=== PATIENT | female | born 1955 | race Caucasian/White ===

== ENCOUNTER 2020-10-14 22:39 | Inpatient (IN) ==
[2020-10-14 23:08] LABS: Basophils # 0.1 K/mcL (0.0-0.2); Basophils % 0.4 %; Eosinophils # 0.4 K/mcL (0.0-0.6); Hematocrit 27.5 % (35.3-44.9); Hemoglobin 8.7 g/dL (11.5-15.4); Immature Granulocytes % 1.1 % (0-4); Lymphocytes # 1.2 K/mcL (0.6-4.6); Lymphocytes % 6.2 %; Mean Corpuscular HGB Conc 31.6 g/dL (31.6-35.5); Mean Corpuscular Hemoglobin 31.5 pg (28.0-33.3); Mean Corpuscular Volume 99.6 fL (83.0-100.0); Mean Platelet Volume 11.3 fL (9.4-12.4); Monocytes # 1.5 K/mcL (0.0-1.3); Monocytes % 7.7 %; Neutrophils # 16.1 K/mcL (1.6-8.9); Platelet Count 165 K/mcL (140-400); Red Blood Count 2.76 M/mcL (3.82-4.97); Red Cell Distribution Width 13.7 % (11.5-14.5); Segmented Neutrophils % 82.6 %; White Blood Count 19.4 K/mcL (4.3-11.1)
[2020-10-14 23:33] LABS: BUN/Creatinine Ratio 9 (6-26); Blood Urea Nitrogen 57 mg/dL (8-23); Carbon Dioxide 17 mEq/L (23-29); Chloride 102 mEq/L (98-107); Glucose 256 mg/dL (70-105); Magnesium 2.1 mg/dL (1.6-2.6); Osmolality,Calculated 297 (280-300); Potassium 5.3 mEq/L (3.5-5.1); Sodium 131 mEq/L (136-145); eGFR For African Americans 8 (> 60); eGFR For Non-African Americans 7 (> 60)
[2020-10-14 23:34] LABS: Troponin I < 0.03 ng/mL (< 0.04)
[2020-10-15 00:46] LABS: INR 1.7; Prothrombin Time 19.1 Seconds (9.4-12.1)
[2020-10-15] MEDS ORDERED: Naloxone 0.4 MG/ML INJ IVP PRN (01:17)
[2020-10-15 02:42] LABS: Basophils # 0.1 K/mcL (0.0-0.2); Basophils % 0.4 %; Eosinophils # 0.3 K/mcL (0.0-0.6); Eosinophils % 1.6 %; Hematocrit 26.4 % (35.3-44.9); Hemoglobin 8.3 g/dL (11.5-15.4); Immature Granulocytes % 0.7 % (0-4); Lymphocytes # 1.5 K/mcL (0.6-4.6); Lymphocytes % 9.2 %; Mean Corpuscular HGB Conc 31.4 g/dL (31.6-35.5); Mean Corpuscular Hemoglobin 32.2 pg (28.0-33.3); Mean Corpuscular Volume 102.3 fL (83.0-100.0); Mean Platelet Volume 11.5 fL (9.4-12.4); Monocytes # 1.2 K/mcL (0.0-1.3); Monocytes % 7.3 %; Neutrophils # 12.9 K/mcL (1.6-8.9); Platelet Count 150 K/mcL (140-400); Red Blood Count 2.58 M/mcL (3.82-4.97); Red Cell Distribution Width 13.6 % (11.5-14.5); Segmented Neutrophils % 80.8 %
[2020-10-15 02:46] LABS: INR 1.7; Prothrombin Time 19.4 Seconds (9.4-12.1)
[2020-10-15 03:01] LABS: Albumin 2.6 g/dL (3.5-5.7); Albumin/Globulin Ratio 0.6 (1.1-2.2); Bilirubin,Indirect 0.4 mg/dL (0.0-1.0); Bilirubin,Total 0.4 mg/dL (0.3-1.0); Globulin 4.5 g/dL (2.4-3.5); Total Protein 7.1 g/dL (6.4-8.9)
[2020-10-15] MEDS: Ipratropium 1 PUFF INHALER IH SCH ×3 (03:43→11:01)
[2020-10-15 03:45] LABS: Digoxin 0.7 ng/mL (0.8-2.0); Potassium 5.1 mEq/L (3.5-5.1)
[2020-10-15] MEDS: Budesonide/Formoterol 80/4.5 1 PUFF INH IH SCH (08:08)
[2020-10-15] MEDS ORDERED: NON-FORMULARY MEDICATION 1 EACH EACH (Ipratropium/Albuterol Sulfate 4 GM) IH SCH (09:00)
[2020-10-15] MEDS ORDERED: *HR* Heparin 5,000 UNIT/ML VIAL ONE (09:19)
[2020-10-15] MEDS: carvediloL 6.25 MG TABLET PO SCH ×2 (10:05→18:03)
[2020-10-15] MEDS: BuPROPion XL (24 HR) 150 MG TABLET PO SCH (10:05)
[2020-10-15] MEDS ORDERED: 0.9 % Sodium Chloride 250 ML IVC PRN (10:16)
[2020-10-15] MEDS ORDERED: *HR* Heparin 10,000 UNIT/10 ML VIAL IV PRN (10:16)
[2020-10-15] MEDS ORDERED: 0.9 % Sodium Chloride 1,000 ML PRIME SCH (10:30)
[2020-10-15 10:51] LABS: Hepatitis B Surface Antibody < 3.10 mIU/mL
[2020-10-15 11:01] LABS: Hepatitis B Surface Antigen Nonreactive (Nonreactive)
[2020-10-15] MEDS ORDERED: Dextrose Gel 15 GM/37.5 ML TUBE PO PRN ×2 (15:14)
[2020-10-15] MEDS ORDERED: D5% in Water 1,000 ML IVC PRN (15:14)
[2020-10-15] MEDS ORDERED: *HR* Dextrose 50 % in Water (Vial) 50 ML VIAL IVP PRN (15:14)
[2020-10-15 15:30] LABS: Complement C3 130 mg/dL (87-200)
[2020-10-15 16:10] LABS: ABG Base Excess -3 mEq/L (-2 to 3); ABG HCO3 25 mEq/L (21-27); ABG Oxygen Saturation 93 % (95-98); ABG PCO2 58 mmHg (35-45); ABG PH 7.25 pH Units (7.32-7.45); ABG PO2 78 mmHg (85-104); ABG TCO2 27 mEq/L (20-26)
[2020-10-15] MEDS: Ipratropium/Albuterol Neb 3 ML IH SCH ×3 (17:08→23:44)
[2020-10-15] MEDS: Insulin LISPRO 300 UNITS/3 ML VIAL SUBQ SCH (17:41)
[2020-10-15] MEDS ORDERED: Warfarin perPT PO PRN (18:00)
[2020-10-15] MEDS ORDERED: *HR* Warfarin 5 MG TABLET PO ONE (18:00)
[2020-10-15 18:57] LABS: ABG Base Excess -2 mEq/L (-2 to 3); ABG HCO3 24 mEq/L (21-27); ABG Oxygen Saturation 94 % (95-98); ABG PCO2 45 mmHg (35-45); ABG PH 7.33 pH Units (7.32-7.45); ABG PO2 78 mmHg (85-104); ABG TCO2 25 mEq/L (20-26); Blood Gas Modality BiLevel
[2020-10-15 19:03] LABS: Protein/Creatinine Ratio,Urine 1.76 mg/mg (0.00-0.20); Sodium, Urine 33.9 mEq/L
[2020-10-15 19:04] LABS: Bacteria,Urine Few per hpf (None-Few); Bilirubin,Urine Negative (Negative); Blood,Urine Small (Negative); Clarity,Urine Clear (Clear); Color,Urine Colorless (Yellow); Glucose,Urine (UA) 300 mg/dL (Normal); Ketones,Urine Negative (Negative); Leukocyte Esterase,Urine Large (Negative); Mucus,Urine Few per lpf (None-Few); Nitrite,Urine Negative (Negative); PH,Urine 6.5 pH Units (5.0-8.0); Protein,Urine 50 mg/dL (Neg-Trace); Specific Gravity,Urine 1.009 (1.010-1.025); Squamous Epithelial Cell,Urine Few per hpf (None-Few); Urobilinogen,Urine Normal (Normal); WBC,Urine 30-50 per hpf (0-3)
[2020-10-15] MEDS: Mirtazapine 15 MG TABLET PO SCH (20:43)
[2020-10-15] MEDS: Melatonin 3 MG TABLET PO SCH (20:43)
[2020-10-15] MEDS: *HR* OxyCODONE/APAP 10/325 TABLET PO PRN (20:46)
[2020-10-15] MEDS ORDERED: Perflutren Lipid Microsphere 1.3 ML in 0.9 % Sodium Chloride 8.7 ML IVP PRN (21:34)
[2020-10-16] MEDS: Ipratropium/Albuterol Neb 3 ML IH SCH ×6 (03:49→23:21)
[2020-10-16 06:26] LABS: Basophils # 0.1 K/mcL (0.0-0.2); Basophils % 0.5 %; Eosinophils # 0.4 K/mcL (0.0-0.6); Eosinophils % 3.4 %; Hematocrit 26.2 % (35.3-44.9); Immature Granulocytes % 0.6 % (0-4); Lymphocytes # 1.6 K/mcL (0.6-4.6); Lymphocytes % 13.6 %; Mean Corpuscular HGB Conc 30.5 g/dL (31.6-35.5); Mean Corpuscular Hemoglobin 30.9 pg (28.0-33.3); Mean Corpuscular Volume 101.2 fL (83.0-100.0); Mean Platelet Volume 11.1 fL (9.4-12.4); Monocytes # 1.4 K/mcL (0.0-1.3); Monocytes % 11.3 %; Neutrophils # 8.4 K/mcL (1.6-8.9); Platelet Count 165 K/mcL (140-400); Red Blood Count 2.59 M/mcL (3.82-4.97); Red Cell Distribution Width 13.5 % (11.5-14.5); Segmented Neutrophils % 70.6 %; White Blood Count 11.9 K/mcL (4.3-11.1)
[2020-10-16 06:35] LABS: INR 1.8; Prothrombin Time 20.2 Seconds (9.4-12.1)
[2020-10-16 06:39] LABS: Calcium 8.4 mg/dL (8.6-10.3); Potassium 4.8 mEq/L (3.5-5.1)
[2020-10-16] MEDS ORDERED: 0.9 % Sodium Chloride 250 ML IVC PRN (07:46)
[2020-10-16] MEDS ORDERED: *HR* Heparin 10,000 UNIT/10 ML VIAL IV PRN (07:46)
[2020-10-16] MEDS ORDERED: 0.9 % Sodium Chloride 1,000 ML PRIME SCH (08:00)
[2020-10-16] MEDS: Furosemide 40 MG/4 ML VIAL IVP SCH ×2 (08:15→16:26)
[2020-10-16] MEDS: Insulin LISPRO 300 UNITS/3 ML VIAL SUBQ SCH ×3 (08:15→16:27)
[2020-10-16] MEDS: BuPROPion XL (24 HR) 150 MG TABLET PO SCH (08:15)
[2020-10-16] MEDS ORDERED: Aspirin 325 MG TABLET PO STA (08:33)
[2020-10-16] MEDS ORDERED: cefTRIAXone 1,000 MG in 0.9 % Sodium Chloride Mini Bag 100 ML IVPB SCH (09:00)
[2020-10-16 09:15] LABS: Basophils # 0.1 K/mcL (0.0-0.2); Basophils % 0.5 %; Eosinophils # 0.5 K/mcL (0.0-0.6); Eosinophils % 3.8 %; Hematocrit 27.2 % (35.3-44.9); Hemoglobin 8.4 g/dL (11.5-15.4); Immature Granulocytes % 0.7 % (0-4); Lymphocytes # 1.3 K/mcL (0.6-4.6); Lymphocytes % 10.6 %; Mean Corpuscular HGB Conc 30.9 g/dL (31.6-35.5); Mean Corpuscular Hemoglobin 31.5 pg (28.0-33.3); Mean Corpuscular Volume 101.9 fL (83.0-100.0); Mean Platelet Volume 11.1 fL (9.4-12.4); Monocytes # 1.2 K/mcL (0.0-1.3); Monocytes % 9.7 %; Neutrophils # 9.3 K/mcL (1.6-8.9); Platelet Count 184 K/mcL (140-400); Red Blood Count 2.67 M/mcL (3.82-4.97); Red Cell Distribution Width 13.7 % (11.5-14.5); Segmented Neutrophils % 74.7 %; White Blood Count 12.5 K/mcL (4.3-11.1)
[2020-10-16] MEDS ORDERED: Isovue-370 500 ML BOTTLE IVP ONE ×2 (09:18→09:44)
[2020-10-16 09:24] LABS: INR 1.8; Prothrombin Time 20.5 Seconds (9.4-12.1)
[2020-10-16 09:40] LABS: BUN/Creatinine Ratio 9 (6-26); Blood Urea Nitrogen 47 mg/dL (8-23); Calcium 8.5 mg/dL (8.6-10.3); Carbon Dioxide 23 mEq/L (23-29); Chloride 102 mEq/L (98-107); Glucose 230 mg/dL (70-105); Osmolality,Calculated 300 (280-300); Potassium 4.8 mEq/L (3.5-5.1); Sodium 135 mEq/L (136-145); Troponin I < 0.03 ng/mL (< 0.04); eGFR For African Americans 9 (> 60); eGFR For Non-African Americans 8 (> 60)
[2020-10-16] MEDS: carvediloL 6.25 MG TABLET PO SCH ×2 (10:52→16:26)
[2020-10-16] MEDS: Budesonide/Formoterol 80/4.5 1 PUFF INH IH SCH (11:27)
[2020-10-16] MEDS ORDERED: levoFLOXacin 750 MG/150 ML 750 MG/150 ML BAG IVPB ONE (12:00)
[2020-10-16] MEDS: *HR* Heparin 5,000 UNIT/ML VIAL SQ SCH ×2 (16:26→20:16)
[2020-10-16] MEDS: Melatonin 3 MG TABLET PO SCH (20:15)
[2020-10-16] MEDS: Mirtazapine 15 MG TABLET PO SCH (20:15)
[2020-10-16] MEDS: *HR* OxyCODONE/APAP 10/325 TABLET PO PRN (22:00)
[2020-10-17] MEDS: Ipratropium/Albuterol Neb 3 ML IH SCH ×4 (03:54→15:40)
[2020-10-17] MEDS: *HR* Heparin 5,000 UNIT/ML VIAL SQ SCH (05:09)
[2020-10-17 05:21] LABS: INR 1.9; Prothrombin Time 21.5 Seconds (9.4-12.1)
[2020-10-17 05:27] LABS: Basophils # 0.1 K/mcL (0.0-0.2); Basophils % 0.8 %; Eosinophils # 0.5 K/mcL (0.0-0.6); Eosinophils % 5.4 %; Hematocrit 25.4 % (35.3-44.9); Hemoglobin 7.9 g/dL (11.5-15.4); Immature Granulocytes % 0.8 % (0-4); Lymphocytes # 1.7 K/mcL (0.6-4.6); Lymphocytes % 18.5 %; Mean Corpuscular HGB Conc 31.1 g/dL (31.6-35.5); Mean Corpuscular Hemoglobin 31.6 pg (28.0-33.3); Mean Corpuscular Volume 101.6 fL (83.0-100.0); Mean Platelet Volume 11.1 fL (9.4-12.4); Monocytes # 1.1 K/mcL (0.0-1.3); Monocytes % 11.9 %; Neutrophils # 5.9 K/mcL (1.6-8.9); Platelet Count 187 K/mcL (140-400); Red Cell Distribution Width 13.7 % (11.5-14.5); Segmented Neutrophils % 62.6 %; White Blood Count 9.3 K/mcL (4.3-11.1)
[2020-10-17 05:41] LABS: Calcium 8.3 mg/dL (8.6-10.3); Potassium 3.7 mEq/L (3.5-5.1)
[2020-10-17] MEDS ORDERED: *HR* Heparin 10,000 UNIT/10 ML VIAL IV PRN (07:21)
[2020-10-17] MEDS ORDERED: 0.9 % Sodium Chloride 250 ML IVC PRN (07:21)
[2020-10-17] MEDS: Budesonide/Formoterol 80/4.5 1 PUFF INH IH SCH (07:53)
[2020-10-17] MEDS ORDERED: Heparin 1,000 UNITS/500 mL 500 ML ONE (08:37)
[2020-10-17] MEDS ORDERED: *HR* FentaNYL (PF) 100 MCG/2 ML VIAL IVP ONE ×2 (08:43→09:19)
[2020-10-17] MEDS ORDERED: Clindamycin 600 MG/50 ML 600 MG/50 ML IV.SOLN IVPB ONE (08:43)
[2020-10-17] MEDS ORDERED: *HR* Midazolam HCl 2 MG/2 ML VIAL IVP ONE (08:43)
[2020-10-17] MEDS ORDERED: *HR* Heparin 5,000 UNIT/ML VIAL ONE (08:54)
[2020-10-17] MEDS ORDERED: 0.9 % Sodium Chloride 500 ML ONE (08:54)
[2020-10-17] MEDS ORDERED: Cholecalciferol (D-3) 1,000 UNIT (25MCG) TABLET PO SCH (09:00)
[2020-10-17] MEDS ORDERED: Aspirin 81 MG TAB.CHEW PO SCH (09:00)
[2020-10-17] MEDS ORDERED: Isosorbide MONOnitrate (24 HR) 30 MG TAB.ER.24H PO SCH (09:00)
[2020-10-17] MEDS ORDERED: Cyanocobalamin (B-12) 1,000 MCG TABLET PO SCH (09:00)
[2020-10-17] MEDS ORDERED: *HR* FentaNYL (PF) 100 MCG/2 ML VIAL ONE (09:19)
[2020-10-17 16:03] VITALS: BP 129/66
[2020-10-17 18:50] LABS: ANA IgG by ELISA DETECTED (None Detected)
[2020-10-18 10:31] LABS: Serine Protease-3 Antibody 7 AU/mL (0-19)
[2020-10-18] MEDS ORDERED: levoFLOXacin 500 MG/100 ML 500 MG/100 ML BAG IVPB SCH (12:00)
[2020-10-19 00:29] LABS: ANA HEp-2 IgG IFA DETECTED (<1:80); Anti Nuclear Ab Pattern SPECKLED
== END 2020-10-17 17:00 | disposition home or self-care (01) | DRG 469 ==
LOC: 2ANU 22:39 → EMEROOARM 22:39 → SUATTDRO 10-15 00:43 → 2ANU 10-15 01:35 → SUATTDRO 10-16 16:12
PROVIDERS: ADMIT Internal Medicine; ATTEND Family Medicine
PROC: IRPERMA (2020-10-17 12:00)

== ENCOUNTER 2020-10-26 10:14 | Observation (INO) ==
[2020-10-26 11:28] LABS: Basophils # 0.1 K/mcL (0.0-0.2); Basophils % 0.7 %; Eosinophils # 0.7 K/mcL (0.0-0.6); Eosinophils % 5.7 %; Hematocrit 23.1 % (35.3-44.9); Immature Granulocytes % 0.6 % (0-4); Lymphocytes # 1.9 K/mcL (0.6-4.6); Lymphocytes % 16.4 %; Mean Corpuscular HGB Conc 30.3 g/dL (31.6-35.5); Mean Corpuscular Hemoglobin 30.7 pg (28.0-33.3); Mean Corpuscular Volume 101.3 fL (83.0-100.0); Mean Platelet Volume 10.2 fL (9.4-12.4); Monocytes # 1.1 K/mcL (0.0-1.3); Monocytes % 9.7 %; Neutrophils # 7.7 K/mcL (1.6-8.9); Platelet Count 257 K/mcL (140-400); Red Blood Count 2.28 M/mcL (3.82-4.97); Red Cell Distribution Width 13.7 % (11.5-14.5); Segmented Neutrophils % 66.9 %; White Blood Count 11.5 K/mcL (4.3-11.1)
[2020-10-26 11:37] LABS: Calcium 8.2 mg/dL (8.6-10.3); Potassium 4.4 mEq/L (3.5-5.1); Troponin I 0.03 ng/mL (< 0.04)
[2020-10-26 11:45] LABS: INR 1.8
[2020-10-26 11:48] LABS: Activated Partial Thrombo Time 30.3 Seconds (26.0-36.0)
[2020-10-26 12:33] LABS: Bilirubin,Urine Negative (Negative); Blood,Urine Trace (Negative); Clarity,Urine Clear (Clear); Color,Urine Light-Yellow (Yellow); Glucose,Urine (UA) 200 mg/dL (Normal); Ketones,Urine Negative (Negative); Leukocyte Esterase,Urine Small (Negative); Nitrite,Urine Negative (Negative); Protein,Urine 50 mg/dL (Neg-Trace); RBC,Urine 0-3 per hpf (0-3); Specific Gravity,Urine 1.009 (1.010-1.025); Squamous Epithelial Cell,Urine Few per hpf (None-Few); Urobilinogen,Urine Normal (Normal)
[2020-10-26] MEDS ORDERED: Furosemide 40 MG/4 ML VIAL IVP ONE (13:05)
[2020-10-26] MEDS ORDERED: Furosemide 80 MG in 0.9 % Sodium Chloride 50 ML IVPB ONE (13:28)
[2020-10-26] MEDS ORDERED: Naloxone 0.4 MG/ML INJ IVP PRN (13:41)
[2020-10-26] MEDS ORDERED: *HR* Dextrose 50 % in Water (Vial) 50 ML VIAL IVP PRN (13:43)
[2020-10-26] MEDS ORDERED: D5% in Water 1,000 ML IVC PRN (13:43)
[2020-10-26] MEDS ORDERED: Dextrose Gel 15 GM/37.5 ML TUBE PO PRN ×2 (13:43)
[2020-10-26] MEDS ORDERED: levoFLOXacin 750 MG/150 ML 750 MG/150 ML BAG IVPB SCH (15:00)
[2020-10-26] MEDS ORDERED: Ipratropium/Albuterol Neb 3 ML IH PRN (15:10)
[2020-10-26] MEDS: Insulin LISPRO 300 UNITS/3 ML VIAL SUBQ SCH (16:51)
[2020-10-26] MEDS: carvediloL 25 MG TABLET PO SCH (16:51)
[2020-10-26] MEDS: Insulin DETEMIR 100 UNIT/ML X5UNITS SUBQ SCH (20:14)
[2020-10-26] MEDS: Pregabalin 50 MG CAPSULE PO SCH (20:14)
[2020-10-26] MEDS: Melatonin 3 MG TABLET PO SCH (20:15)
[2020-10-26] MEDS: *HR* OxyCODONE/APAP 10/325 TABLET PO SCH (20:15)
[2020-10-26] MEDS: Furosemide 40 MG/4 ML VIAL IVP SCH (20:16)
[2020-10-26] MEDS: hydrALAZINE 10 MG TABLET PO SCH (20:17)
[2020-10-27 04:34] LABS: Basophils # 0.1 K/mcL (0.0-0.2); Basophils % 0.6 %; Eosinophils # 0.6 K/mcL (0.0-0.6); Eosinophils % 5.9 %; Hematocrit 23.6 % (35.3-44.9); Hemoglobin 7.2 g/dL (11.5-15.4); Immature Granulocytes % 0.4 % (0-4); Lymphocytes # 1.8 K/mcL (0.6-4.6); Lymphocytes % 19.7 %; Mean Corpuscular HGB Conc 30.5 g/dL (31.6-35.5); Mean Corpuscular Hemoglobin 31.2 pg (28.0-33.3); Mean Corpuscular Volume 102.2 fL (83.0-100.0); Mean Platelet Volume 10.3 fL (9.4-12.4); Monocytes # 0.9 K/mcL (0.0-1.3); Monocytes % 9.8 %; Neutrophils # 5.9 K/mcL (1.6-8.9); Platelet Count 241 K/mcL (140-400); Red Blood Count 2.31 M/mcL (3.82-4.97); Red Cell Distribution Width 13.9 % (11.5-14.5); Segmented Neutrophils % 63.6 %; White Blood Count 9.3 K/mcL (4.3-11.1)
[2020-10-27 04:52] LABS: Calcium 8.1 mg/dL (8.6-10.3); Magnesium 1.7 mg/dL (1.6-2.6); Phosphorous 8.2 mg/dL (2.7-4.5); Potassium 4.6 mEq/L (3.5-5.1)
[2020-10-27] MEDS: Insulin LISPRO 300 UNITS/3 ML VIAL SUBQ SCH ×3 (08:03→17:03)
[2020-10-27] MEDS: hydrALAZINE 10 MG TABLET PO SCH ×2 (08:49→20:08)
[2020-10-27] MEDS: Cholecalciferol (D-3) 1,000 UNIT (25MCG) TABLET PO SCH (08:49)
[2020-10-27] MEDS: carvediloL 25 MG TABLET PO SCH ×2 (08:50→17:02)
[2020-10-27] MEDS: Isosorbide MONOnitrate (24 HR) 30 MG TAB.ER.24H PO SCH (08:51)
[2020-10-27] MEDS: *HR* OxyCODONE/APAP 10/325 TABLET PO SCH ×2 (08:51→20:08)
[2020-10-27] MEDS: Pregabalin 50 MG CAPSULE PO SCH ×2 (08:51→20:09)
[2020-10-27] MEDS: Aspirin Enteric Coated 81 MG Tablet PO SCH (08:52)
[2020-10-27] MEDS: Furosemide 40 MG/4 ML VIAL IVP SCH ×2 (08:53→20:09)
[2020-10-27] MEDS: BuPROPion XL (24 HR) 150 MG TABLET PO SCH (08:56)
[2020-10-27] MEDS: Insulin DETEMIR 100 UNIT/ML X5UNITS SUBQ SCH (20:09)
[2020-10-27] MEDS: Melatonin 3 MG TABLET PO SCH (21:26)
[2020-10-28 05:21] LABS: Hematocrit 21.7 % (35.3-44.9); Hemoglobin 6.6 g/dL (11.5-15.4)
[2020-10-28 05:32] LABS: Prothrombin Time 22.4 Seconds (9.4-12.1)
[2020-10-28 05:43] LABS: Calcium 7.9 mg/dL (8.6-10.3); Magnesium 1.7 mg/dL (1.6-2.6); Phosphorous 8.2 mg/dL (2.7-4.5); Potassium 4.4 mEq/L (3.5-5.1)
[2020-10-28] MEDS ORDERED: 0.9 % Sodium Chloride 2,000 ML ONE (06:39)
[2020-10-28] MEDS ORDERED: *HR* Heparin 10,000 UNIT/10 ML VIAL IV PRN (07:20)
[2020-10-28] MEDS ORDERED: 0.9 % Sodium Chloride 250 ML IVC PRN (07:20)
[2020-10-28] MEDS ORDERED: 0.9 % Sodium Chloride 1,000 ML PRIME SCH (07:30)
[2020-10-28] MEDS: BuPROPion XL (24 HR) 150 MG TABLET PO SCH (08:35)
[2020-10-28] MEDS: Cholecalciferol (D-3) 1,000 UNIT (25MCG) TABLET PO SCH (08:35)
[2020-10-28] MEDS: Insulin LISPRO 300 UNITS/3 ML VIAL SUBQ SCH ×2 (08:35→12:06)
[2020-10-28] MEDS: carvediloL 25 MG TABLET PO SCH (08:36)
[2020-10-28] MEDS: hydrALAZINE 10 MG TABLET PO SCH (08:36)
[2020-10-28] MEDS: Pregabalin 50 MG CAPSULE PO SCH (08:36)
[2020-10-28] MEDS: Aspirin Enteric Coated 81 MG Tablet PO SCH (08:36)
[2020-10-28] MEDS: Furosemide 40 MG/4 ML VIAL IVP SCH (08:36)
[2020-10-28] MEDS: Isosorbide MONOnitrate (24 HR) 30 MG TAB.ER.24H PO SCH (08:36)
[2020-10-28] MEDS: *HR* OxyCODONE/APAP 10/325 TABLET PO SCH (08:48)
[2020-10-28] MEDS ORDERED: Clotrimazole 1% CRM 15 GM TUBE TP SCH (09:00)
[2020-10-28] MEDS ORDERED: Heparin 1,000 UNITS/500 mL 500 ML ONE (10:05)
[2020-10-28] MEDS ORDERED: *HR* FentaNYL (PF) 100 MCG/2 ML VIAL ONE (10:59)
[2020-10-28] MEDS ORDERED: *HR* FentaNYL (PF) 100 MCG/2 ML VIAL IVP ONE (11:00)
[2020-10-28] MEDS ORDERED: *HR* Heparin 5,000 UNIT/ML VIAL ONE (11:04)
[2020-10-28] MEDS ORDERED: levoFLOXacin 500 MG/100 ML 500 MG/100 ML BAG IVPB SCH (16:00)
[2020-10-28 16:18] VITALS: BP 144/78
[2020-10-28 16:49] LABS: Hematocrit 29.1 % (35.3-44.9)
[2020-10-28] MEDS ORDERED: Calcium Acetate 667 MG CAPSULE PO SCH (17:00)
[2020-10-29] MEDS ORDERED: Furosemide 40 MG TABLET PO SCH (08:00)
[2020-10-29] MEDS ORDERED: Sacubitril/Valsartan 24/26 MG 1 TABLET PO SCH (09:00)
== END 2020-10-28 17:15 | disposition home health service (06) ==
LOC: 2ANU 10:14 → EMEROOARM 10:14 → SUATTDRO 13:37 → 2ANU 14:45
PROVIDERS: ADMIT Internal Medicine; ATTEND Internal Medicine
PROC: IRPERMA (2020-10-28 12:00)

== ENCOUNTER 2020-11-07 20:59 | Inpatient (IN) ==
[2020-11-07] MEDS ORDERED: Tdap (Boostrix) Vaccine 0.5 ML SYRINGE IM ONE (21:45)
[2020-11-07 22:58] LABS: Bacteria,Urine Few per hpf (None-Few); Bilirubin,Urine Negative (Negative); Blood,Urine Negative (Negative); Clarity,Urine Clear (Clear); Color,Urine Light-Yellow (Yellow); Glucose,Urine (UA) 100 mg/dL (Normal); Ketones,Urine Negative (Negative); Leukocyte Esterase,Urine Trace (Negative); Mucus,Urine Few per lpf (None-Few); Nitrite,Urine Negative (Negative); PH,Urine 7.5 pH Units (5.0-8.0); Protein,Urine 70 mg/dL (Neg-Trace); RBC,Urine 0-3 per hpf (0-3); Specific Gravity,Urine 1.009 (1.010-1.025); Squamous Epithelial Cell,Urine Few per hpf (None-Few); Urobilinogen,Urine Normal (Normal); WBC,Urine 15-30 per hpf (0-3)
[2020-11-07 23:06] LABS: Basophils # 0.1 K/mcL (0.0-0.2); Basophils % 0.4 %; Eosinophils # 0.4 K/mcL (0.0-0.6); Eosinophils % 2.7 %; Hematocrit 25.1 % (35.3-44.9); Hemoglobin 7.6 g/dL (11.5-15.4); Immature Granulocytes % 0.8 % (0-4); Lymphocytes # 1.3 K/mcL (0.6-4.6); Mean Corpuscular HGB Conc 30.3 g/dL (31.6-35.5); Mean Corpuscular Hemoglobin 30.5 pg (28.0-33.3); Mean Corpuscular Volume 100.8 fL (83.0-100.0); Mean Platelet Volume 9.7 fL (9.4-12.4); Monocytes # 1.3 K/mcL (0.0-1.3); Monocytes % 8.2 %; Neutrophils # 12.4 K/mcL (1.6-8.9); Platelet Count 215 K/mcL (140-400); Red Blood Count 2.49 M/mcL (3.82-4.97); Red Cell Distribution Width 14.5 % (11.5-14.5); Segmented Neutrophils % 79.9 %; White Blood Count 15.6 K/mcL (4.3-11.1)
[2020-11-07 23:28] LABS: BUN/Creatinine Ratio 6 (6-26); Blood Urea Nitrogen 47 mg/dL (8-23); Carbon Dioxide 22 mEq/L (23-29); Chloride 96 mEq/L (98-107); Glucose 187 mg/dL (70-105); Osmolality,Calculated 287 (280-300); Potassium 6.4 mEq/L (3.5-5.1); Sodium 130 mEq/L (136-145); eGFR For African Americans 7 (> 60); eGFR For Non-African Americans 6 (> 60)
[2020-11-07 23:29] LABS: Troponin I < 0.03 ng/mL (< 0.04)
[2020-11-07] MEDS ORDERED: Insulin Human Regular 5 UNIT in 0.9 % Sodium Chloride 10 ML IV ONE (23:42)
[2020-11-07] MEDS ORDERED: Ipratropium/Albuterol Neb 3 ML IH ONE (23:44)
[2020-11-08] MEDS ORDERED: Calcium Gluconate 1,000 MG/10 ML VIAL IVPB STA (00:19)
[2020-11-08] MEDS ORDERED: Calcium Gluconate 1gm/50mL 1 GM/50 ML BAG IVPB ONE (00:30)
[2020-11-08] MEDS ORDERED: Naloxone 0.4 MG/ML INJ IVP PRN (01:29)
[2020-11-08] MEDS ORDERED: Ondansetron 4 MG/2 ML VIAL IVP PRN (01:29)
[2020-11-08] MEDS ORDERED: Acetaminophen 325 MG TABLET PO PRN (01:29)
[2020-11-08] MEDS ORDERED: *HR* Dextrose 50 % in Water (Vial) 50 ML VIAL IVP ONE (01:37)
[2020-11-08] MEDS ORDERED: Insulin Human Regular 10 UNIT in 0.9 % Sodium Chloride 10 ML IV ONE (01:37)
[2020-11-08] MEDS ORDERED: SODIUM ZIRCONIUM CYCLOSILICATE 5 GM POWD.PACK PO ONE (01:38)
[2020-11-08] MEDS ORDERED: Dextrose Gel 15 GM/37.5 ML TUBE PO PRN ×2 (05:47)
[2020-11-08] MEDS ORDERED: D5% in Water 1,000 ML IVC PRN (05:47)
[2020-11-08] MEDS ORDERED: *HR* Dextrose 50 % in Water (Vial) 50 ML VIAL IVP PRN (05:47)
[2020-11-08] MEDS ORDERED: Insulin LISPRO 300 UNITS/3 ML VIAL SUBQ SCH (06:00)
[2020-11-08 06:58] LABS: Basophils # 0.1 K/mcL (0.0-0.2); Basophils % 0.6 %; Eosinophils # 0.5 K/mcL (0.0-0.6); Eosinophils % 3.8 %; Hematocrit 21.8 % (35.3-44.9); Hemoglobin 6.6 g/dL (11.5-15.4); Immature Granulocytes % 0.7 % (0-4); Lymphocytes # 1.8 K/mcL (0.6-4.6); Lymphocytes % 14.3 %; Mean Corpuscular HGB Conc 30.3 g/dL (31.6-35.5); Mean Corpuscular Hemoglobin 30.6 pg (28.0-33.3); Mean Corpuscular Volume 100.9 fL (83.0-100.0); Mean Platelet Volume 9.7 fL (9.4-12.4); Monocytes # 1.3 K/mcL (0.0-1.3); Monocytes % 10.4 %; Neutrophils # 8.7 K/mcL (1.6-8.9); Platelet Count 184 K/mcL (140-400); Red Blood Count 2.16 M/mcL (3.82-4.97); Red Cell Distribution Width 14.4 % (11.5-14.5); Segmented Neutrophils % 70.2 %; White Blood Count 12.4 K/mcL (4.3-11.1)
[2020-11-08 07:03] LABS: INR 1.7; Prothrombin Time 19.9 Seconds (9.4-12.1)
[2020-11-08 07:15] LABS: Albumin 2.5 g/dL (3.5-5.7); Albumin/Globulin Ratio 0.5 (1.1-2.2); Bilirubin,Total 0.3 mg/dL (0.3-1.0); Calcium 8.3 mg/dL (8.6-10.3); Chol/HDL Ratio 1.8 (0-4.9); Globulin 4.8 g/dL (2.4-3.5); Magnesium 1.8 mg/dL (1.6-2.6); Phosphorous 8.1 mg/dL (2.7-4.5); Potassium 5.9 mEq/L (3.5-5.1); Total Protein 7.3 g/dL (6.4-8.9)
[2020-11-08] MEDS ORDERED: 0.9 % Sodium Chloride 250 ML IVC PRN (07:40)
[2020-11-08] MEDS ORDERED: *HR* Heparin 10,000 UNIT/10 ML VIAL IV PRN (07:40)
[2020-11-08] MEDS ORDERED: 0.9 % Sodium Chloride 250 ML IVC SCH (07:45)
[2020-11-08] MEDS ORDERED: 0.9 % Sodium Chloride 1,000 ML PRIME SCH (07:45)
[2020-11-08] MEDS: Insulin LISPRO 300 UNITS/3 ML VIAL SUBQ SCH ×3 (12:32→21:00)
[2020-11-08] MEDS: Calcium Acetate 667 MG CAPSULE PO SCH (17:11)
[2020-11-08] MEDS: carvediloL 25 MG TABLET PO SCH (17:11)
[2020-11-08] MEDS ORDERED: Warfarin perPT PO PRN (18:00)
[2020-11-08] MEDS: Melatonin 3 MG TABLET PO SCH (21:01)
[2020-11-08] MEDS: Pregabalin 50 MG CAPSULE PO SCH (21:01)
[2020-11-08] MEDS: hydrALAZINE 10 MG TABLET PO SCH (21:01)
[2020-11-08] MEDS: *HR* OxyCODONE/APAP 10/325 TABLET PO SCH (21:01)
[2020-11-08] MEDS: Insulin DETEMIR 100 UNIT/ML X5UNITS SUBQ SCH (21:02)
[2020-11-09 04:58] LABS: Basophils # 0.1 K/mcL (0.0-0.2); Basophils % 0.5 %; Eosinophils # 0.2 K/mcL (0.0-0.6); Eosinophils % 1.4 %; Hematocrit 25.7 % (35.3-44.9); Immature Granulocytes % 0.5 % (0-4); Lymphocytes # 0.9 K/mcL (0.6-4.6); Mean Corpuscular HGB Conc 31.1 g/dL (31.6-35.5); Mean Corpuscular Hemoglobin 30.8 pg (28.0-33.3); Mean Corpuscular Volume 98.8 fL (83.0-100.0); Mean Platelet Volume 9.5 fL (9.4-12.4); Monocytes # 1.6 K/mcL (0.0-1.3); Monocytes % 10.5 %; Neutrophils # 12.5 K/mcL (1.6-8.9); Platelet Count 197 K/mcL (140-400); Red Cell Distribution Width 14.6 % (11.5-14.5); Segmented Neutrophils % 81.1 %; White Blood Count 15.4 K/mcL (4.3-11.1)
[2020-11-09 05:01] LABS: INR 1.9; Prothrombin Time 21.9 Seconds (9.4-12.1)
[2020-11-09 05:16] LABS: Calcium 8.2 mg/dL (8.6-10.3)
[2020-11-09] MEDS ORDERED: *HR* Metoprolol 5 MG/5 ML VIAL IVP ONE ×2 (05:26→16:55)
[2020-11-09] MEDS: *HR* OxyCODONE/APAP 10/325 TABLET PO SCH ×2 (08:47→20:13)
[2020-11-09] MEDS: Pregabalin 50 MG CAPSULE PO SCH ×2 (08:47→20:12)
[2020-11-09] MEDS: Aspirin Enteric Coated 81 MG Tablet PO SCH (08:48)
[2020-11-09] MEDS: hydrALAZINE 10 MG TABLET PO SCH ×2 (08:48→20:13)
[2020-11-09] MEDS: carvediloL 25 MG TABLET PO SCH ×2 (08:48→16:49)
[2020-11-09] MEDS: Insulin LISPRO 300 UNITS/3 ML VIAL SUBQ SCH ×4 (08:49→21:00)
[2020-11-09] MEDS: Calcium Acetate 667 MG CAPSULE PO SCH ×3 (08:49→16:45)
[2020-11-09] MEDS: BuPROPion XL (24 HR) 150 MG TABLET PO SCH (08:49)
[2020-11-09] MEDS: Budesonide/Formoterol 80/4.5 1 PUFF INH IH SCH ×2 (10:36→22:26)
[2020-11-09] MEDS ORDERED: Ferumoxytol 510 MG in 0.9 % Sodium Chloride 100 ML IVPB ONE (12:23)
[2020-11-09] MEDS: Sennosides/Docusate Sodium TABLET PO SCH ×2 (15:39→22:18)
[2020-11-09] MEDS: Furosemide 40 MG TABLET PO SCH (15:39)
[2020-11-09] MEDS: *HR* Heparin 5,000 UNIT/ML VIAL SQ SCH (16:45)
[2020-11-09] MEDS ORDERED: methylPREDNISolone 125 MG/2 ML VIAL IVP ONE (17:01)
[2020-11-09] MEDS ORDERED: Furosemide 20 MG/2 ML VIAL IVP ONE (17:02)
[2020-11-09] MEDS ORDERED: Levalbuterol Neb 1.25 MG/3 ML ONE (17:05)
[2020-11-09] MEDS: Levalbuterol Neb 1.25 MG/3 ML IH SCH ×2 (17:06→22:26)
[2020-11-09 17:07] LABS: ABG Base Excess 4 mEq/L (-2 to 3); ABG HCO3 31 mEq/L (21-27); ABG Oxygen Saturation 53 % (95-98); ABG PCO2 59 mmHg (35-45); ABG PH 7.33 pH Units (7.32-7.45); ABG PO2 31 mmHg (85-104); ABG TCO2 33 mEq/L (20-26)
[2020-11-09] MEDS ORDERED: carvediloL 6.25 MG TABLET PO ONE (18:56)
[2020-11-09] MEDS: Insulin DETEMIR 100 UNIT/ML X5UNITS SUBQ SCH (21:00)
[2020-11-09 21:28] LABS: Influenza A PCR Negative (Negative); Influenza B PCR Negative (Negative); Resp. Syncytial Virus PCR Negative (Negative)
[2020-11-09 21:29] LABS: SARS-CoV-2 by PCR (In House) Negative (Negative)
[2020-11-09] MEDS: Melatonin 3 MG TABLET PO SCH (22:12)
[2020-11-10] MEDS: Levalbuterol Neb 1.25 MG/3 ML IH SCH ×4 (03:37→22:24)
[2020-11-10] MEDS: *HR* Heparin 5,000 UNIT/ML VIAL SQ SCH ×2 (05:07→16:26)
[2020-11-10] MEDS ORDERED: levoFLOXacin 750 MG/150 ML 750 MG/150 ML BAG IVPB ONE (07:00)
[2020-11-10] MEDS: carvediloL 25 MG TABLET PO SCH ×2 (08:03→16:26)
[2020-11-10] MEDS: Aspirin Enteric Coated 81 MG Tablet PO SCH (08:03)
[2020-11-10] MEDS: Sennosides/Docusate Sodium TABLET PO SCH ×2 (08:03→20:49)
[2020-11-10] MEDS: Calcium Acetate 667 MG CAPSULE PO SCH ×3 (08:03→16:26)
[2020-11-10] MEDS: Pregabalin 50 MG CAPSULE PO SCH ×2 (08:04→20:49)
[2020-11-10] MEDS: BuPROPion XL (24 HR) 150 MG TABLET PO SCH (08:04)
[2020-11-10] MEDS: Insulin LISPRO 300 UNITS/3 ML VIAL SUBQ SCH ×5 (08:04→20:50)
[2020-11-10] MEDS: hydrALAZINE 10 MG TABLET PO SCH ×2 (08:04→20:49)
[2020-11-10] MEDS ORDERED: Vancomycin 1 EACH in 0.9 % Sodium Chloride 250 ML IVPB PRN (11:00)
[2020-11-10] MEDS: Budesonide/Formoterol 80/4.5 1 PUFF INH IH SCH ×2 (11:01→22:24)
[2020-11-10 11:05] LABS: Basophils % 0.1 %; Hematocrit 24.3 % (35.3-44.9); Hemoglobin 7.5 g/dL (11.5-15.4); Lymphocytes # 0.9 K/mcL (0.6-4.6); Lymphocytes % 6.4 %; Mean Corpuscular HGB Conc 30.9 g/dL (31.6-35.5); Mean Corpuscular Volume 97.2 fL (83.0-100.0); Mean Platelet Volume 9.7 fL (9.4-12.4); Monocytes # 0.5 K/mcL (0.0-1.3); Monocytes % 3.2 %; Neutrophils # 12.9 K/mcL (1.6-8.9); Platelet Count 190 K/mcL (140-400); Red Cell Distribution Width 14.3 % (11.5-14.5); Segmented Neutrophils % 89.3 %; White Blood Count 14.5 K/mcL (4.3-11.1)
[2020-11-10 11:06] LABS: ABG Base Excess 3 mEq/L (-2 to 3); ABG HCO3 28 mEq/L (21-27); ABG Oxygen Saturation 97 % (95-98); ABG PCO2 45 mmHg (35-45); ABG PH 7.41 pH Units (7.32-7.45); ABG PO2 92 mmHg (85-104); ABG TCO2 30 mEq/L (20-26)
[2020-11-10 11:07] LABS: INR 1.9; Prothrombin Time 21.8 Seconds (9.4-12.1)
[2020-11-10 11:20] LABS: Calcium 8.7 mg/dL (8.6-10.3); Potassium 4.3 mEq/L (3.5-5.1)
[2020-11-10] MEDS ORDERED: Vancomycin 1,750 MG/517.5 ML IV.SOLN IVPB ONE (11:34)
[2020-11-10] MEDS ORDERED: carvediloL 6.25 MG TABLET PO ONE ×2 (17:07→18:56)
[2020-11-10] MEDS: Melatonin 3 MG TABLET PO SCH (20:49)
[2020-11-10] MEDS: Insulin DETEMIR 100 UNIT/ML X5UNITS SUBQ SCH (20:50)
[2020-11-10] MEDS: *HR* OxyCODONE/APAP 10/325 TABLET PO PRN (21:30)
[2020-11-11] MEDS: Levalbuterol Neb 1.25 MG/3 ML IH SCH ×4 (03:47→22:30)
[2020-11-11] MEDS: *HR* Heparin 5,000 UNIT/ML VIAL SQ SCH ×2 (05:05→16:51)
[2020-11-11 05:37] LABS: Basophils % 0.1 %; Hematocrit 25.8 % (35.3-44.9); Hemoglobin 7.8 g/dL (11.5-15.4); Immature Granulocytes % 1.1 % (0-4); Lymphocytes # 1.1 K/mcL (0.6-4.6); Lymphocytes % 6.6 %; Mean Corpuscular HGB Conc 30.2 g/dL (31.6-35.5); Mean Corpuscular Hemoglobin 30.4 pg (28.0-33.3); Mean Corpuscular Volume 100.4 fL (83.0-100.0); Mean Platelet Volume 9.7 fL (9.4-12.4); Monocytes # 1.4 K/mcL (0.0-1.3); Monocytes % 8.1 %; Neutrophils # 14.2 K/mcL (1.6-8.9); Platelet Count 202 K/mcL (140-400); Red Blood Count 2.57 M/mcL (3.82-4.97); Red Cell Distribution Width 14.2 % (11.5-14.5); Segmented Neutrophils % 84.1 %; White Blood Count 16.8 K/mcL (4.3-11.1)
[2020-11-11 05:39] LABS: Prothrombin Time 22.2 Seconds (9.4-12.1)
[2020-11-11 05:52] LABS: Calcium 8.5 mg/dL (8.6-10.3); Potassium 4.8 mEq/L (3.5-5.1)
[2020-11-11] MEDS ORDERED: 0.9 % Sodium Chloride 250 ML IVC PRN (07:20)
[2020-11-11] MEDS: Calcium Acetate 667 MG CAPSULE PO SCH ×3 (07:48→16:51)
[2020-11-11] MEDS: Aspirin Enteric Coated 81 MG Tablet PO SCH (07:48)
[2020-11-11] MEDS: Pregabalin 50 MG CAPSULE PO SCH ×2 (07:48→19:57)
[2020-11-11] MEDS: Sennosides/Docusate Sodium TABLET PO SCH ×2 (07:49→19:57)
[2020-11-11] MEDS: BuPROPion XL (24 HR) 150 MG TABLET PO SCH (07:49)
[2020-11-11] MEDS: Insulin LISPRO 300 UNITS/3 ML VIAL SUBQ SCH ×7 (07:50→21:12)
[2020-11-11] MEDS: Budesonide/Formoterol 80/4.5 1 PUFF INH IH SCH ×2 (09:27→22:30)
[2020-11-11] MEDS ORDERED: Perflutren Lipid Microsphere 1.3 ML in 0.9 % Sodium Chloride 8.7 ML IVP PRN (12:01)
[2020-11-11] MEDS: hydrALAZINE 10 MG TABLET PO SCH ×2 (13:53→19:57)
[2020-11-11] MEDS: carvediloL 25 MG TABLET PO SCH ×2 (14:06→16:51)
[2020-11-11] MEDS: *HR* OxyCODONE/APAP 10/325 TABLET PO PRN (14:27)
[2020-11-11] MEDS ORDERED: Nitroglycerin 0.4 MG TAB.SUBL SL PRN (18:30)
[2020-11-11] MEDS ORDERED: Nitroglycerin 0.4 MG TAB.SUBL SL ONE (18:31)
[2020-11-11] MEDS: Melatonin 3 MG TABLET PO SCH (19:57)
[2020-11-11] MEDS: Insulin DETEMIR 100 UNIT/ML X5UNITS SUBQ SCH (21:20)
[2020-11-12 01:40] LABS: Basophils % 0.2 %; Eosinophils # 0.2 K/mcL (0.0-0.6); Eosinophils % 1.6 %; Hematocrit 26.9 % (35.3-44.9); Hemoglobin 8.1 g/dL (11.5-15.4); Immature Granulocytes % 0.7 % (0-4); Lymphocytes # 1.3 K/mcL (0.6-4.6); Mean Corpuscular HGB Conc 30.1 g/dL (31.6-35.5); Mean Corpuscular Hemoglobin 30.5 pg (28.0-33.3); Mean Corpuscular Volume 101.1 fL (83.0-100.0); Mean Platelet Volume 10.2 fL (9.4-12.4); Monocytes # 1.4 K/mcL (0.0-1.3); Monocytes % 11.8 %; Neutrophils # 8.8 K/mcL (1.6-8.9); Platelet Count 198 K/mcL (140-400); Red Blood Count 2.66 M/mcL (3.82-4.97); Red Cell Distribution Width 14.4 % (11.5-14.5); Segmented Neutrophils % 74.7 %; White Blood Count 11.8 K/mcL (4.3-11.1)
[2020-11-12 01:59] LABS: Potassium 3.8 mEq/L (3.5-5.1)
[2020-11-12] MEDS: Levalbuterol Neb 1.25 MG/3 ML IH SCH ×6 (04:12→21:56)
[2020-11-12 04:23] LABS: Bilirubin,Urine Negative (Negative); Blood,Urine Moderate (Negative); Clarity,Urine Clear (Clear); Color,Urine Light-Yellow (Yellow); Glucose,Urine (UA) 70 mg/dL (Normal); Ketones,Urine Negative (Negative); Leukocyte Esterase,Urine Small (Negative); Mucus,Urine Few per lpf (None-Few); Nitrite,Urine Negative (Negative); PH,Urine 7.5 pH Units (5.0-8.0); Protein,Urine 100 mg/dL (Neg-Trace); Specific Gravity,Urine 1.012 (1.010-1.025); Urobilinogen,Urine Normal (Normal); WBC,Urine 15-30 per hpf (0-3)
[2020-11-12] MEDS: *HR* Heparin 5,000 UNIT/ML VIAL SQ SCH ×2 (05:36→16:57)
[2020-11-12] MEDS: *HR* OxyCODONE/APAP 10/325 TABLET PO PRN ×2 (06:12→20:21)
[2020-11-12] MEDS ORDERED: levoFLOXacin 500 MG/100 ML 500 MG/100 ML BAG IVPB SCH (07:00)
[2020-11-12] MEDS: Insulin LISPRO 300 UNITS/3 ML VIAL SUBQ SCH ×7 (07:37→20:19)
[2020-11-12] MEDS: hydrALAZINE 10 MG TABLET PO SCH ×2 (08:48→20:18)
[2020-11-12] MEDS: Pregabalin 50 MG CAPSULE PO SCH ×2 (08:51→20:18)
[2020-11-12] MEDS: BuPROPion XL (24 HR) 150 MG TABLET PO SCH (08:51)
[2020-11-12] MEDS: Sennosides/Docusate Sodium TABLET PO SCH ×2 (08:51→20:18)
[2020-11-12] MEDS: Calcium Acetate 667 MG CAPSULE PO SCH ×3 (08:51→16:58)
[2020-11-12] MEDS: carvediloL 25 MG TABLET PO SCH ×2 (08:52→17:00)
[2020-11-12] MEDS: Aspirin Enteric Coated 81 MG Tablet PO SCH (08:52)
[2020-11-12] MEDS: Budesonide/Formoterol 80/4.5 1 PUFF INH IH SCH ×3 (10:51→21:56)
[2020-11-12] MEDS: ceFAZolin 1,000 MG in Water for inj. (sterile) 10 ML IVP SCH (16:57)
[2020-11-12] MEDS: Furosemide 40 MG TABLET PO SCH (17:03)
[2020-11-12] MEDS: Melatonin 3 MG TABLET PO SCH (20:18)
[2020-11-12] MEDS: Insulin DETEMIR 100 UNIT/ML X5UNITS SUBQ SCH (20:19)
[2020-11-13] MEDS: Levalbuterol Neb 1.25 MG/3 ML IH SCH ×4 (03:49→22:24)
[2020-11-13] MEDS: *HR* Heparin 5,000 UNIT/ML VIAL SQ SCH ×2 (05:32→16:44)
[2020-11-13 05:35] LABS: Basophils # 0.1 K/mcL (0.0-0.2); Basophils % 0.5 %; Eosinophils # 0.8 K/mcL (0.0-0.6); Hematocrit 26.7 % (35.3-44.9); Hemoglobin 7.8 g/dL (11.5-15.4); Immature Granulocytes % 1.3 % (0-4); Lymphocytes # 1.7 K/mcL (0.6-4.6); Lymphocytes % 17.2 %; Mean Corpuscular HGB Conc 29.2 g/dL (31.6-35.5); Mean Corpuscular Hemoglobin 29.4 pg (28.0-33.3); Mean Corpuscular Volume 100.8 fL (83.0-100.0); Mean Platelet Volume 9.8 fL (9.4-12.4); Monocytes # 1.2 K/mcL (0.0-1.3); Monocytes % 12.1 %; Platelet Count 172 K/mcL (140-400); Red Blood Count 2.65 M/mcL (3.82-4.97); Red Cell Distribution Width 14.7 % (11.5-14.5); Segmented Neutrophils % 60.9 %; White Blood Count 9.8 K/mcL (4.3-11.1)
[2020-11-13 05:55] LABS: Calcium 8.4 mg/dL (8.6-10.3)
[2020-11-13 06:13] LABS: Rheumatoid Factor 13 IU/mL (Less than 14)
[2020-11-13 06:50] LABS: Hepatitis B Surface Antibody < 3.10 mIU/mL
[2020-11-13 07:01] LABS: Hepatitis B Surface Antigen Nonreactive (Nonreactive)
[2020-11-13] MEDS ORDERED: 0.9 % Sodium Chloride 250 ML IVC PRN (07:06)
[2020-11-13] MEDS: Insulin LISPRO 300 UNITS/3 ML VIAL SUBQ SCH ×7 (07:19→20:50)
[2020-11-13] MEDS: *HR* OxyCODONE/APAP 10/325 TABLET PO PRN ×2 (10:37→20:56)
[2020-11-13] MEDS: Budesonide/Formoterol 80/4.5 1 PUFF INH IH SCH ×2 (10:50→22:24)
[2020-11-13] MEDS: Sennosides/Docusate Sodium TABLET PO SCH ×2 (12:25→20:56)
[2020-11-13] MEDS: Aspirin Enteric Coated 81 MG Tablet PO SCH (12:25)
[2020-11-13] MEDS: Pregabalin 50 MG CAPSULE PO SCH ×2 (12:25→20:56)
[2020-11-13] MEDS: BuPROPion XL (24 HR) 150 MG TABLET PO SCH (12:25)
[2020-11-13] MEDS: Calcium Acetate 667 MG CAPSULE PO SCH ×3 (12:25→16:42)
[2020-11-13] MEDS: hydrALAZINE 10 MG TABLET PO SCH ×2 (12:25→20:56)
[2020-11-13] MEDS: carvediloL 25 MG TABLET PO SCH ×2 (12:26→16:42)
[2020-11-13] MEDS: ceFAZolin 1,000 MG in Water for inj. (sterile) 10 ML IVP SCH (16:44)
[2020-11-13] MEDS: Melatonin 3 MG TABLET PO SCH (20:57)
[2020-11-13] MEDS: Insulin DETEMIR 100 UNIT/ML X5UNITS SUBQ SCH (20:57)
[2020-11-14] MEDS: Levalbuterol Neb 1.25 MG/3 ML IH SCH ×4 (03:34→21:57)
[2020-11-14] MEDS: *HR* Heparin 5,000 UNIT/ML VIAL SQ SCH ×2 (05:55→16:20)
[2020-11-14 07:29] LABS: Basophils # 0.1 K/mcL (0.0-0.2); Basophils % 0.8 %; Eosinophils % 9.5 %; Hematocrit 28.9 % (35.3-44.9); Hemoglobin 8.7 g/dL (11.5-15.4); Immature Granulocytes % 1.8 % (0-4); Lymphocytes # 2.1 K/mcL (0.6-4.6); Lymphocytes % 19.1 %; Mean Corpuscular HGB Conc 30.1 g/dL (31.6-35.5); Mean Corpuscular Hemoglobin 30.9 pg (28.0-33.3); Mean Corpuscular Volume 102.5 fL (83.0-100.0); Mean Platelet Volume 10.3 fL (9.4-12.4); Monocytes # 1.4 K/mcL (0.0-1.3); Monocytes % 12.6 %; Neutrophils # 6.1 K/mcL (1.6-8.9); Platelet Count 178 K/mcL (140-400); Red Blood Count 2.82 M/mcL (3.82-4.97); Red Cell Distribution Width 14.7 % (11.5-14.5); Segmented Neutrophils % 56.2 %; White Blood Count 10.8 K/mcL (4.3-11.1)
[2020-11-14 07:58] LABS: Albumin 2.6 g/dL (3.5-5.7); Albumin/Globulin Ratio 0.5 (1.1-2.2); Bilirubin,Total 0.3 mg/dL (0.3-1.0); Calcium 8.6 mg/dL (8.6-10.3); Globulin 4.8 g/dL (2.4-3.5); Potassium 3.8 mEq/L (3.5-5.1); Total Protein 7.4 g/dL (6.4-8.9)
[2020-11-14] MEDS: Pregabalin 50 MG CAPSULE PO SCH ×2 (08:12→20:43)
[2020-11-14] MEDS: Aspirin Enteric Coated 81 MG Tablet PO SCH (08:13)
[2020-11-14] MEDS: BuPROPion XL (24 HR) 150 MG TABLET PO SCH (08:13)
[2020-11-14] MEDS: Sennosides/Docusate Sodium TABLET PO SCH ×2 (08:13→20:42)
[2020-11-14] MEDS: hydrALAZINE 10 MG TABLET PO SCH ×2 (08:13→20:43)
[2020-11-14] MEDS: Calcium Acetate 667 MG CAPSULE PO SCH ×3 (08:13→16:21)
[2020-11-14] MEDS: carvediloL 25 MG TABLET PO SCH ×2 (08:13→16:21)
[2020-11-14] MEDS: Insulin LISPRO 300 UNITS/3 ML VIAL SUBQ SCH ×6 (08:14→16:21)
[2020-11-14] MEDS: *HR* OxyCODONE/APAP 10/325 TABLET PO PRN ×2 (08:21→20:44)
[2020-11-14] MEDS: Budesonide/Formoterol 80/4.5 1 PUFF INH IH SCH ×2 (10:29→21:57)
[2020-11-14] MEDS: ceFAZolin 1,000 MG in Water for inj. (sterile) 10 ML IVP SCH (16:18)
[2020-11-14] MEDS: Furosemide 40 MG TABLET PO SCH (16:21)
[2020-11-14] MEDS: Insulin DETEMIR 100 UNIT/ML X5UNITS SUBQ SCH (20:31)
[2020-11-14] MEDS: Melatonin 3 MG TABLET PO SCH (20:42)
[2020-11-15] MEDS: Levalbuterol Neb 1.25 MG/3 ML IH SCH ×4 (04:02→22:43)
[2020-11-15] MEDS: Insulin LISPRO 300 UNITS/3 ML VIAL SUBQ SCH ×9 (04:41→21:39)
[2020-11-15] MEDS: *HR* Heparin 5,000 UNIT/ML VIAL SQ SCH ×2 (04:54→17:30)
[2020-11-15 05:40] LABS: Eosinophils % 10.2 %; Hematocrit 28.4 % (35.3-44.9); Hemoglobin 8.4 g/dL (11.5-15.4); Immature Granulocytes % 2.1 % (0-4); Lymphocytes % 18.5 %; Mean Corpuscular HGB Conc 29.6 g/dL (31.6-35.5); Mean Corpuscular Hemoglobin 30.2 pg (28.0-33.3); Mean Corpuscular Volume 102.2 fL (83.0-100.0); Mean Platelet Volume 10.2 fL (9.4-12.4); Monocytes % 11.9 %; Platelet Count 178 K/mcL (140-400); Red Blood Count 2.78 M/mcL (3.82-4.97); Red Cell Distribution Width 14.4 % (11.5-14.5); Segmented Neutrophils % 56.5 %; White Blood Count 10.5 K/mcL (4.3-11.1)
[2020-11-15 05:41] LABS: Basophils # 0.1 K/mcL (0.0-0.2); Basophils % 0.8 %; Eosinophils # 1.1 K/mcL (0.0-0.6); Monocytes # 1.3 K/mcL (0.0-1.3)
[2020-11-15 06:00] LABS: Alanine Aminotransferase < 3 Units/L (7-52); Albumin 2.5 g/dL (3.5-5.7); Albumin/Globulin Ratio 0.6 (1.1-2.2); Alkaline Phosphatase 39 Units/L (34-104); Aspartate Amino Transferase 10 Units/L (13-39); BUN/Creatinine Ratio 11 (6-26); Bilirubin,Total 0.3 mg/dL (0.3-1.0); Blood Urea Nitrogen 53 mg/dL (8-23); Calcium 8.4 mg/dL (8.6-10.3); Carbon Dioxide 30 mEq/L (23-29); Chloride 97 mEq/L (98-107); Globulin 4.5 g/dL (2.4-3.5); Glucose 177 mg/dL (70-105); Osmolality,Calculated 301 (280-300); Potassium 3.7 mEq/L (3.5-5.1); Sodium 136 mEq/L (136-145); eGFR For African Americans 11 (> 60); eGFR For Non-African Americans 9 (> 60)
[2020-11-15] MEDS: Pregabalin 50 MG CAPSULE PO SCH ×2 (08:49→21:38)
[2020-11-15] MEDS: carvediloL 25 MG TABLET PO SCH ×2 (08:49→17:29)
[2020-11-15] MEDS: *HR* OxyCODONE/APAP 10/325 TABLET PO PRN ×2 (08:49→22:25)
[2020-11-15] MEDS: Aspirin Enteric Coated 81 MG Tablet PO SCH (08:49)
[2020-11-15] MEDS: BuPROPion XL (24 HR) 150 MG TABLET PO SCH (08:49)
[2020-11-15] MEDS: Calcium Acetate 667 MG CAPSULE PO SCH ×3 (08:49→17:29)
[2020-11-15] MEDS: hydrALAZINE 10 MG TABLET PO SCH ×2 (08:49→22:25)
[2020-11-15] MEDS: Sennosides/Docusate Sodium TABLET PO SCH ×2 (08:49→21:37)
[2020-11-15] MEDS ORDERED: 0.9 % Sodium Chloride 250 ML IVC PRN (10:43)
[2020-11-15] MEDS ORDERED: *HR* Heparin 10,000 UNIT/10 ML VIAL IV PRN (10:43)
[2020-11-15] MEDS ORDERED: 0.9 % Sodium Chloride 1,000 ML PRIME SCH (10:45)
[2020-11-15] MEDS ORDERED: Heparin 1,000 UNITS/500 mL 500 ML ONE (10:46)
[2020-11-15] MEDS: Budesonide/Formoterol 80/4.5 1 PUFF INH IH SCH ×2 (10:47→22:43)
[2020-11-15] MEDS ORDERED: *HR* Heparin 5,000 UNIT/ML VIAL ONE (11:07)
[2020-11-15] MEDS: ceFAZolin 1,000 MG in Water for inj. (sterile) 10 ML IVP SCH (17:29)
[2020-11-15] MEDS: Insulin DETEMIR 100 UNIT/ML X5UNITS SUBQ SCH (21:38)
[2020-11-15] MEDS: Melatonin 3 MG TABLET PO SCH (21:38)
[2020-11-16] MEDS: Levalbuterol Neb 1.25 MG/3 ML IH SCH ×4 (03:13→21:34)
[2020-11-16] MEDS: *HR* Heparin 5,000 UNIT/ML VIAL SQ SCH ×2 (06:06→16:52)
[2020-11-16 06:35] LABS: Basophils # 0.1 K/mcL (0.0-0.2); Basophils % 0.7 %; Eosinophils % 8.6 %; Hematocrit 27.5 % (35.3-44.9); Hemoglobin 8.3 g/dL (11.5-15.4); Immature Granulocytes % 2.7 % (0-4); Lymphocytes # 2.4 K/mcL (0.6-4.6); Lymphocytes % 20.3 %; Mean Corpuscular HGB Conc 30.2 g/dL (31.6-35.5); Mean Corpuscular Hemoglobin 30.6 pg (28.0-33.3); Mean Corpuscular Volume 101.5 fL (83.0-100.0); Mean Platelet Volume 10.5 fL (9.4-12.4); Monocytes # 1.6 K/mcL (0.0-1.3); Monocytes % 13.6 %; Neutrophils # 6.4 K/mcL (1.6-8.9); Platelet Count 150 K/mcL (140-400); Red Blood Count 2.71 M/mcL (3.82-4.97); Red Cell Distribution Width 14.6 % (11.5-14.5); Segmented Neutrophils % 54.1 %; White Blood Count 11.8 K/mcL (4.3-11.1)
[2020-11-16 06:57] LABS: Alanine Aminotransferase < 3 Units/L (7-52); Albumin 2.6 g/dL (3.5-5.7); Albumin/Globulin Ratio 0.6 (1.1-2.2); Alkaline Phosphatase 41 Units/L (34-104); Aspartate Amino Transferase 10 Units/L (13-39); BUN/Creatinine Ratio 9 (6-26); Bilirubin,Total 0.3 mg/dL (0.3-1.0); Blood Urea Nitrogen 35 mg/dL (8-23); Calcium 8.6 mg/dL (8.6-10.3); Carbon Dioxide 31 mEq/L (23-29); Chloride 97 mEq/L (98-107); Globulin 4.5 g/dL (2.4-3.5); Glucose 104 mg/dL (70-105); Osmolality,Calculated 290 (280-300); Potassium 3.9 mEq/L (3.5-5.1); Sodium 136 mEq/L (136-145); Total Protein 7.1 g/dL (6.4-8.9); eGFR For African Americans 14 (> 60); eGFR For Non-African Americans 12 (> 60)
[2020-11-16] MEDS: Insulin LISPRO 300 UNITS/3 ML VIAL SUBQ SCH ×7 (07:55→21:56)
[2020-11-16] MEDS: Aspirin Enteric Coated 81 MG Tablet PO SCH (08:03)
[2020-11-16] MEDS: carvediloL 25 MG TABLET PO SCH ×2 (08:03→16:52)
[2020-11-16] MEDS: hydrALAZINE 10 MG TABLET PO SCH ×2 (08:03→21:58)
[2020-11-16] MEDS: Sennosides/Docusate Sodium TABLET PO SCH ×2 (08:03→21:57)
[2020-11-16] MEDS: Calcium Acetate 667 MG CAPSULE PO SCH ×3 (08:03→16:52)
[2020-11-16] MEDS: Pregabalin 50 MG CAPSULE PO SCH ×2 (08:04→21:57)
[2020-11-16] MEDS: BuPROPion XL (24 HR) 150 MG TABLET PO SCH (08:04)
[2020-11-16] MEDS: *HR* OxyCODONE/APAP 10/325 TABLET PO PRN ×2 (08:16→22:01)
[2020-11-16] MEDS: Budesonide/Formoterol 80/4.5 1 PUFF INH IH SCH ×2 (10:42→21:34)
[2020-11-16] MEDS: ceFAZolin 1,000 MG in Water for inj. (sterile) 10 ML IVP SCH (16:55)
[2020-11-16] MEDS: Furosemide 40 MG TABLET PO SCH (16:58)
[2020-11-16] MEDS: Melatonin 3 MG TABLET PO SCH (21:57)
[2020-11-16] MEDS: Insulin DETEMIR 100 UNIT/ML X5UNITS SUBQ SCH (21:58)
[2020-11-17] MEDS: Levalbuterol Neb 1.25 MG/3 ML IH SCH ×4 (03:25→22:12)
[2020-11-17 03:39] LABS: Hematocrit 27.2 % (35.3-44.9); Hemoglobin 8.1 g/dL (11.5-15.4); Mean Corpuscular HGB Conc 29.8 g/dL (31.6-35.5); Mean Corpuscular Hemoglobin 30.2 pg (28.0-33.3); Mean Corpuscular Volume 101.5 fL (83.0-100.0); Mean Platelet Volume 10.7 fL (9.4-12.4); Platelet Count 164 K/mcL (140-400); Red Blood Count 2.68 M/mcL (3.82-4.97); Red Cell Distribution Width 14.4 % (11.5-14.5); White Blood Count 10.7 K/mcL (4.3-11.1)
[2020-11-17 03:55] LABS: Calcium 8.9 mg/dL (8.6-10.3); Potassium 4.3 mEq/L (3.5-5.1)
[2020-11-17] MEDS: *HR* Heparin 5,000 UNIT/ML VIAL SQ SCH ×2 (05:42→17:43)
[2020-11-17] MEDS: Pregabalin 50 MG CAPSULE PO SCH ×2 (07:40→21:17)
[2020-11-17] MEDS: BuPROPion XL (24 HR) 150 MG TABLET PO SCH (07:40)
[2020-11-17] MEDS: Aspirin Enteric Coated 81 MG Tablet PO SCH (07:40)
[2020-11-17] MEDS: Insulin LISPRO 300 UNITS/3 ML VIAL SUBQ SCH ×7 (07:40→21:18)
[2020-11-17] MEDS: carvediloL 25 MG TABLET PO SCH ×2 (07:41→17:41)
[2020-11-17] MEDS: Calcium Acetate 667 MG CAPSULE PO SCH ×3 (07:41→17:41)
[2020-11-17] MEDS: Sennosides/Docusate Sodium TABLET PO SCH ×2 (07:41→21:16)
[2020-11-17] MEDS: hydrALAZINE 10 MG TABLET PO SCH ×2 (07:41→21:17)
[2020-11-17] MEDS: *HR* OxyCODONE/APAP 10/325 TABLET PO PRN ×2 (07:45→21:17)
[2020-11-17] MEDS: Budesonide/Formoterol 80/4.5 1 PUFF INH IH SCH ×2 (10:49→22:12)
[2020-11-17] MEDS: ceFAZolin 1,000 MG in Water for inj. (sterile) 10 ML IVP SCH (17:41)
[2020-11-17] MEDS: Melatonin 3 MG TABLET PO SCH (21:17)
[2020-11-17] MEDS: Insulin DETEMIR 100 UNIT/ML X5UNITS SUBQ SCH (21:18)
[2020-11-18] MEDS: Levalbuterol Neb 1.25 MG/3 ML IH SCH ×4 (04:21→21:42)
[2020-11-18 04:24] LABS: Hematocrit 26.1 % (35.3-44.9); Hemoglobin 7.7 g/dL (11.5-15.4); Mean Corpuscular HGB Conc 29.5 g/dL (31.6-35.5); Mean Corpuscular Hemoglobin 29.5 pg (28.0-33.3); Mean Platelet Volume 10.8 fL (9.4-12.4); Platelet Count 177 K/mcL (140-400); Red Blood Count 2.61 M/mcL (3.82-4.97); Red Cell Distribution Width 14.3 % (11.5-14.5); White Blood Count 10.8 K/mcL (4.3-11.1)
[2020-11-18 04:35] LABS: Calcium 8.8 mg/dL (8.6-10.3); Potassium 4.7 mEq/L (3.5-5.1)
[2020-11-18] MEDS: *HR* Heparin 5,000 UNIT/ML VIAL SQ SCH ×2 (05:41→17:20)
[2020-11-18] MEDS ORDERED: 0.9 % Sodium Chloride 250 ML IVC PRN ×2 (07:30→13:24)
[2020-11-18] MEDS ORDERED: *HR* Heparin 10,000 UNIT/10 ML VIAL IV PRN (07:30)
[2020-11-18] MEDS ORDERED: 0.9 % Sodium Chloride 1,000 ML PRIME SCH (07:30)
[2020-11-18] MEDS: Insulin LISPRO 300 UNITS/3 ML VIAL SUBQ SCH ×7 (08:18→21:08)
[2020-11-18] MEDS ORDERED: 0.9 % Sodium Chloride 500 ML IVC ONE (09:11)
[2020-11-18] MEDS ORDERED: Lidocaine Viscous Oral Soln 15 ML SOLUTION MM PRN (09:11)
[2020-11-18] MEDS ORDERED: Lidocaine 2% Syringe 100 MG/5 ML ONE (09:36)
[2020-11-18] MEDS ORDERED: *HR* Etomidate 20 MG/10 ML AMPUL IVP ONE (09:37)
[2020-11-18] MEDS ORDERED: *HR* Propofol 200 MG/20 ML VIAL IVP ONE ×3 (09:37→09:47)
[2020-11-18 09:46] LABS: INR 1.5; Prothrombin Time 16.7 Seconds (9.4-12.1)
[2020-11-18] MEDS: Calcium Acetate 667 MG CAPSULE PO SCH ×3 (09:46→17:19)
[2020-11-18] MEDS: Aspirin Enteric Coated 81 MG Tablet PO SCH ×2 (09:46→11:17)
[2020-11-18] MEDS: Pregabalin 50 MG CAPSULE PO SCH ×3 (09:46→21:07)
[2020-11-18] MEDS: hydrALAZINE 10 MG TABLET PO SCH ×2 (09:46→20:52)
[2020-11-18] MEDS: Sennosides/Docusate Sodium TABLET PO SCH ×3 (09:47→21:09)
[2020-11-18] MEDS: Budesonide/Formoterol 80/4.5 1 PUFF INH IH SCH ×2 (10:47→21:42)
[2020-11-18] MEDS: carvediloL 25 MG TABLET PO SCH ×2 (11:14→17:19)
[2020-11-18] MEDS: *HR* OxyCODONE/APAP 10/325 TABLET PO PRN ×2 (11:14→21:07)
[2020-11-18] MEDS: BuPROPion XL (24 HR) 150 MG TABLET PO SCH (11:14)
[2020-11-18] MEDS ORDERED: Albumin 25% 25gram/100mL 25 GM/100 ML IV.SOLN IVPB STA (13:24)
[2020-11-18] MEDS ORDERED: Albumin 25% 25gram/100mL 25 GM/100 ML IV.SOLN ONE (13:34)
[2020-11-18] MEDS: ceFAZolin 1,000 MG in Water for inj. (sterile) 10 ML IVP SCH (17:19)
[2020-11-18] MEDS: Melatonin 3 MG TABLET PO SCH (21:07)
[2020-11-18] MEDS: Insulin DETEMIR 100 UNIT/ML X5UNITS SUBQ SCH (21:08)
[2020-11-18] MEDS ORDERED: polyethylene glycoL 3350 17 GM POWD.PACK PO ONE (23:00)
[2020-11-19] MEDS: Levalbuterol Neb 1.25 MG/3 ML IH SCH ×3 (03:51→16:03)
[2020-11-19] MEDS: *HR* Heparin 5,000 UNIT/ML VIAL SQ SCH ×2 (04:55→19:18)
[2020-11-19 05:28] LABS: Hematocrit 25.1 % (35.3-44.9); Hemoglobin 7.5 g/dL (11.5-15.4); Mean Corpuscular HGB Conc 29.9 g/dL (31.6-35.5); Mean Corpuscular Hemoglobin 30.1 pg (28.0-33.3); Mean Corpuscular Volume 100.8 fL (83.0-100.0); Mean Platelet Volume 10.6 fL (9.4-12.4); Platelet Count 177 K/mcL (140-400); Red Blood Count 2.49 M/mcL (3.82-4.97); Red Cell Distribution Width 14.2 % (11.5-14.5); White Blood Count 8.3 K/mcL (4.3-11.1)
[2020-11-19 05:40] LABS: Calcium 8.5 mg/dL (8.6-10.3); Potassium 3.9 mEq/L (3.5-5.1)
[2020-11-19] MEDS: Aspirin Enteric Coated 81 MG Tablet PO SCH (08:31)
[2020-11-19] MEDS: Calcium Acetate 667 MG CAPSULE PO SCH ×3 (08:32→16:45)
[2020-11-19] MEDS: Pregabalin 50 MG CAPSULE PO SCH ×2 (08:32→20:59)
[2020-11-19] MEDS: BuPROPion XL (24 HR) 150 MG TABLET PO SCH (08:32)
[2020-11-19] MEDS: carvediloL 25 MG TABLET PO SCH ×2 (08:32→16:45)
[2020-11-19] MEDS: hydrALAZINE 10 MG TABLET PO SCH ×2 (08:32→21:00)
[2020-11-19] MEDS: Insulin LISPRO 300 UNITS/3 ML VIAL SUBQ SCH ×7 (08:33→21:00)
[2020-11-19] MEDS: *HR* OxyCODONE/APAP 10/325 TABLET PO PRN ×2 (08:43→21:00)
[2020-11-19] MEDS: Sennosides/Docusate Sodium TABLET PO SCH ×2 (08:44→20:59)
[2020-11-19] MEDS: Budesonide/Formoterol 80/4.5 1 PUFF INH IH SCH (10:54)
[2020-11-19 13:45] LABS: Adenovirus Not Detected (Not Detect); Bordetella Pertussis Not Detected (Not Detect); Chlamydophila pneumoniae Not Detected (Not Detect); Coronavirus 229E Not Detected (Not Detect); Coronavirus HKU1 Not Detected (Not Detect); Coronavirus NL63 Not Detected (Not Detect); Coronavirus OC43 Not Detected (Not Detect); Human Metapneumovirus Not Detected (Not Detect); Human Rhinovirus/Enterovirus Not Detected (Not Detect); Influenza A Subtype 2009 H1 Not Detected (Not Detect); Influenza B Not Detected (Not Detect); Mycoplasma pneumoniae Not Detected (Not Detect); Parainfluenza Virus 1 Not Detected (Not Detect); Parainfluenza Virus 2 Not Detected (Not Detect); Parainfluenza Virus 3 Not Detected (Not Detect); Parainfluenza Virus 4 Not Detected (Not Detect); Respiratory Syncytial Virus Not Detected (Not Detect); SARS-CoV-2 Not Detected (Not Detect)
[2020-11-19] MEDS ORDERED: Lactulose Oral Soln 20 GM/30 ML UDC PO ONE (14:11)
[2020-11-19] MEDS: ceFAZolin 1,000 MG in Water for inj. (sterile) 10 ML IVP SCH (16:44)
[2020-11-19] MEDS: Furosemide 40 MG TABLET PO SCH (16:46)
[2020-11-19 19:43] VITALS: BP 121/72
[2020-11-19] MEDS: Melatonin 3 MG TABLET PO SCH (21:00)
[2020-11-19] MEDS: Insulin DETEMIR 100 UNIT/ML X5UNITS SUBQ SCH (21:00)
== END 2020-11-19 21:21 | disposition short-term general hospital (02) | DRG 721 ==
LOC: CDU 20:59 → EMEROOARM 20:59 → SUATTDRO 11-08 00:55 → 2ANU 11-08 00:59 → SUATTDRO 11-09 14:26
PROVIDERS: ADMIT Internal Medicine; ATTEND Family Medicine

== ENCOUNTER 2020-12-18 18:54 | Observation (INO) ==
[2020-12-18] MEDS ORDERED: Naloxone 0.4 MG/ML INJ IVP PRN (21:54)
[2020-12-18] MEDS ORDERED: Melatonin 3 MG TABLET PO PRN (21:54)
[2020-12-18] MEDS ORDERED: Acetaminophen 325 MG TABLET PO PRN (21:54)
[2020-12-18] MEDS ORDERED: Ondansetron 4 MG/2 ML VIAL IVP PRN (21:54)
[2020-12-19] MEDS: *HR* OxyCODONE/APAP 10/325 TABLET PO SCH ×3 (00:47→20:20)
[2020-12-19 01:44] LABS: Basophils # 0.1 K/mcL (0.0-0.2); Basophils % 0.6 %; Eosinophils # 0.4 K/mcL (0.0-0.6); Eosinophils % 4.8 %; Hematocrit 23.6 % (35.3-44.9); Immature Granulocytes % 0.2 % (0-4); Lymphocytes # 1.9 K/mcL (0.6-4.6); Lymphocytes % 21.8 %; Mean Corpuscular HGB Conc 29.7 g/dL (31.6-35.5); Mean Corpuscular Hemoglobin 30.6 pg (28.0-33.3); Mean Corpuscular Volume 103.1 fL (83.0-100.0); Mean Platelet Volume 10.4 fL (9.4-12.4); Monocytes # 0.8 K/mcL (0.0-1.3); Monocytes % 9.2 %; Neutrophils # 5.4 K/mcL (1.6-8.9); Platelet Count 155 K/mcL (140-400); Red Blood Count 2.29 M/mcL (3.82-4.97); Red Cell Distribution Width 14.7 % (11.5-14.5); Segmented Neutrophils % 63.4 %; White Blood Count 8.5 K/mcL (4.3-11.1)
[2020-12-19 01:48] LABS: INR 1.5; Prothrombin Time 17.2 Seconds (9.4-12.1)
[2020-12-19 01:51] LABS: Activated Partial Thrombo Time 27.1 Seconds (26.0-36.0)
[2020-12-19 02:01] LABS: Albumin 2.6 g/dL (3.5-5.7); Albumin/Globulin Ratio 0.6 (1.1-2.2); Bilirubin,Total 0.3 mg/dL (0.3-1.0); Calcium 8.9 mg/dL (8.6-10.3); Globulin 4.3 g/dL (2.4-3.5); Magnesium 2.5 mg/dL (1.6-2.6); Phosphorous 4.4 mg/dL (2.7-4.5); Potassium 5.3 mEq/L (3.5-5.1); Total Protein 6.9 g/dL (6.4-8.9)
[2020-12-19] MEDS ORDERED: D5% in Water 1,000 ML IVC PRN (02:07)
[2020-12-19] MEDS ORDERED: *HR* Dextrose 50 % in Water (Vial) 50 ML VIAL IVP PRN (02:07)
[2020-12-19] MEDS ORDERED: Dextrose Gel 15 GM/37.5 ML TUBE PO PRN ×2 (02:07)
[2020-12-19] MEDS: Insulin LISPRO 300 UNITS/3 ML VIAL SUBQ SCH ×3 (05:55→16:59)
[2020-12-19 07:29] LABS: Hemoglobin 7.3 g/dL (11.5-15.4); Mean Corpuscular HGB Conc 29.2 g/dL (31.6-35.5); Mean Corpuscular Hemoglobin 30.2 pg (28.0-33.3); Mean Corpuscular Volume 103.3 fL (83.0-100.0); Mean Platelet Volume 10.3 fL (9.4-12.4); Platelet Count 166 K/mcL (140-400); Red Blood Count 2.42 M/mcL (3.82-4.97); Red Cell Distribution Width 14.6 % (11.5-14.5); White Blood Count 7.3 K/mcL (4.3-11.1)
[2020-12-19] MEDS ORDERED: 0.9 % Sodium Chloride 1,000 ML ONE (08:21)
[2020-12-19] MEDS ORDERED: 0.9 % Sodium Chloride 250 ML IVC PRN (08:35)
[2020-12-19] MEDS ORDERED: 0.9 % Sodium Chloride 1,000 ML PRIME SCH (08:45)
[2020-12-19] MEDS ORDERED: Heparin 1,000 UNITS/500 mL 500 ML ONE (08:45)
[2020-12-19] MEDS ORDERED: *HR* Heparin 5,000 UNIT/ML VIAL ONE (08:59)
[2020-12-19 09:39] LABS: Hepatitis B Surface Antibody 3.23 mIU/mL
[2020-12-19 09:50] LABS: Hepatitis B Surface Antigen Nonreactive (Nonreactive)
[2020-12-19] MEDS ORDERED: *HR* Heparin 10,000 UNIT/10 ML VIAL ONE (13:15)
[2020-12-19] MEDS ORDERED: Furosemide 40 MG TABLET PO SCH (18:45)
[2020-12-19] MEDS: hydrALAZINE 10 MG TABLET PO SCH (20:20)
[2020-12-19] MEDS: Sennosides/Docusate Sodium TABLET PO SCH (20:20)
[2020-12-19] MEDS: Pregabalin 50 MG CAPSULE PO SCH (20:21)
[2020-12-19] MEDS: carvediloL 25 MG TABLET PO SCH (20:23)
[2020-12-19] MEDS ORDERED: Insulin LISPRO 300 UNITS/3 ML VIAL SUBQ SCH (21:00)
[2020-12-19] MEDS ORDERED: Melatonin 3 MG TABLET PO SCH (21:00)
[2020-12-19] MEDS: Budesonide/Formoterol 160/4.5 1 PUFF INH IH SCH (22:58)
[2020-12-20 05:20] LABS: Basophils # 0.1 K/mcL (0.0-0.2); Eosinophils # 0.4 K/mcL (0.0-0.6); Eosinophils % 5.1 %; Hematocrit 24.7 % (35.3-44.9); Hemoglobin 7.4 g/dL (11.5-15.4); Immature Granulocytes % 0.3 % (0-4); Lymphocytes # 1.7 K/mcL (0.6-4.6); Lymphocytes % 23.1 %; Mean Corpuscular Hemoglobin 30.8 pg (28.0-33.3); Mean Corpuscular Volume 102.9 fL (83.0-100.0); Mean Platelet Volume 10.4 fL (9.4-12.4); Monocytes # 0.7 K/mcL (0.0-1.3); Monocytes % 9.8 %; Neutrophils # 4.4 K/mcL (1.6-8.9); Platelet Count 153 K/mcL (140-400); Red Cell Distribution Width 14.6 % (11.5-14.5); Segmented Neutrophils % 60.7 %; White Blood Count 7.3 K/mcL (4.3-11.1)
[2020-12-20 05:34] LABS: INR 1.3; Prothrombin Time 15.4 Seconds (9.4-12.1)
[2020-12-20 05:36] LABS: Calcium 8.8 mg/dL (8.6-10.3); Potassium 4.6 mEq/L (3.5-5.1)
[2020-12-20] MEDS ORDERED: 0.9 % Sodium Chloride 250 ML IVC PRN (07:03)
[2020-12-20] MEDS: Insulin LISPRO 300 UNITS/3 ML VIAL SUBQ SCH ×2 (07:06→12:10)
[2020-12-20] MEDS: hydrALAZINE 10 MG TABLET PO SCH (07:08)
[2020-12-20] MEDS: carvediloL 25 MG TABLET PO SCH (07:08)
[2020-12-20] MEDS: Calcium Acetate 667 MG CAPSULE PO SCH ×2 (07:33→12:11)
[2020-12-20] MEDS: Pregabalin 50 MG CAPSULE PO SCH (07:33)
[2020-12-20] MEDS: Sennosides/Docusate Sodium TABLET PO SCH (07:34)
[2020-12-20] MEDS: *HR* OxyCODONE/APAP 10/325 TABLET PO SCH (07:34)
[2020-12-20] MEDS: Budesonide/Formoterol 160/4.5 1 PUFF INH IH SCH (08:00)
[2020-12-20] MEDS ORDERED: Cyanocobalamin (B-12) 1,000 MCG TABLET PO SCH (09:00)
[2020-12-20] MEDS ORDERED: BuPROPion XL (24 HR) 150 MG TABLET PO SCH (09:00)
[2020-12-20] MEDS ORDERED: Renal Vitamin 1 CAP CAPSULE PO SCH (09:00)
[2020-12-20] MEDS ORDERED: polyethylene glycoL 3350 17 GM POWD.PACK PO SCH (09:00)
[2020-12-20] MEDS ORDERED: Bisacodyl 10 MG RECTAL SUPPOSITORY RC SCH (09:00)
[2020-12-20] MEDS ORDERED: *HR* Heparin 10,000 UNIT/10 ML VIAL ONE (12:17)
[2020-12-20 12:48] VITALS: BP 127/62
== END 2020-12-20 16:53 ==
LOC: 2ANU → SUATTDRO 20:51
PROVIDERS: ADMIT Internal Medicine; ATTEND Internal Medicine